=== PATIENT | female | born 1990 ===

== ENCOUNTER 2022-10-21 11:59 | Outpatient (RCR) | payer OTHER, SELFPAY | END 2022-10-21 23:59 | disposition home or self-care (01) | LOC: HO.PHPA 11:59 | PROVIDERS: Visit Provider Psychiatry & Neurology Psychiatry | DX: F31.4 Bipolar disorder, current episode depressed, severe, without psychotic features (principal); F41.1 Generalized anxiety disorder; F12.20 Cannabis dependence, uncomplicated | CPT/HCPCS: 90791 ==

== ENCOUNTER 2022-11-26 13:40 | Outpatient (REF) | payer OTHER, SELFPAY ==
[2022-11-26 13:57] LABS: MANUAL DIFF FLAG NO
[2022-11-26 14:25] LABS: Basophils Percent Auto 0.3 % (0-2); Eosinophils Absolute Auto 0.1 X10*3/uL (0.0-0.4); Eosinophils Percent Auto 1.1 % (0-4); Hematocrit 38.1 % (37.0-47.0); Hemoglobin 13.2 g/dl (12.0-16.0); Imm Gran Abs Auto 0.02 X10*3/uL (0.00-0.03); Imm Gran Pct Auto 0.3 % (0.0-0.4); Lymphocytes Absolute Auto 2.7 X10*3/uL (1.2-4.9); Lymphocytes Percent Auto 38.1 % (20-40); Mean Corpuscular HGB Conc 34.6 g/dl (31.0-35.0); Mean Corpuscular Volume 92.5 fL (80.0-98.0); Mean Platelet Volume 10.2 fL (9.4-12.3); Monocytes Absolute Auto 0.4 X10*3/uL (0.1-1.2); Monocytes Percent Auto 6.1 % (2-11); Neutrophils Absolute Auto 3.8 x10*3/uL (2.0-8.3); Neutrophils Percent Auto 54.1 % (45-73); Platelet Count 251 X10*3/uL (160-400); Red Blood Count 4.12 X10*6/uL (4.20-5.50); Red Cell Distribution Width 12.1 % (11.0-16.0)
[2022-11-26 15:16] LABS: Alanine Aminotransferase 22 U/L (0-31); Albumin Level 4.1 g/dL (3.5-5.0); Alkaline Phosphatase 61 U/L (39-117); Anion Gap 10 (12-20); Aspartate Amino Transferase 18 U/L (5-31); Bilirubin Total 0.9 mg/dL (0.0-1.0); Blood Urea Nitrogen 10 mg/dL (9-16); Calcium 9.7 mg/dL (8.4-10.2); Carbon Dioxide 28 mmol/L (22-29); Chloride 107 mmol/L (96-108); Estimated Glomerular Filt Rate > 60; Glucose Random 87 mg/dL (60-115); Potassium 4.4 mmol/L (3.3-5.1); Sodium 141 mmol/L (135-145); Total Protein 7.1 g/dL (6.5-8.0)
[2022-11-26 15:33] LABS: Free T4 (Free Thyroxine) 1.03 ng/dL (0.71-1.85); Thyroid Stimulating Hormone 1.18 uIU/mL (0.32-4.0)
[2022-11-26 15:42] LABS: Folate 10.7 ng/mL (> or = 4.0); Vitamin B12 286 pg/mL (200-900)
== END 2022-11-26 13:41 | disposition home or self-care (01) ==
LOC: HO.LAB 13:40
PROVIDERS: Visit Provider Psychiatry & Neurology Psychiatry
DX: F31.81 Bipolar II disorder (principal); Z79.899 Other long term (current) drug therapy
CPT/HCPCS: 36415; 80053; 82607; 82746; 84439; 84443; 85025

== ENCOUNTER → 2022-12-03 11:15 | Outpatient (BNV) | payer OTHER, SELFPAY | PROVIDERS: Visit Provider Psychiatry & Neurology Psychiatry | DX: F43.11 Post-traumatic stress disorder, acute (principal); F31.81 Bipolar II disorder | CPT/HCPCS: 99212; 99214; 99232 ==

== ENCOUNTER 2022-12-10 11:30 | Outpatient (RCR) | payer OTHER, SELFPAY ==
[2022-11-22 01:20] VITALS: BP 128/70; PULSE 80; RESP 16; TEMP 36.9
[2022-11-22 14:54] VITALS: BMI 35.1
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
--- NOTE | 2022-11-25 15:54 | HO.PHP ---
Clients case was reviewed and opened today in treatment team.
--- NOTE | 2022-12-01 15:02 | HO.PHP ---
[facility] staff reached out to Clarissa's OP therapist and psychiatrist, Herson Tirado, to inform her around how Clarissa has been doing within the program. [facility] staff left a VM noting that Clarissa has been utilizing the program to the best of her abilities and her tentative discharge date is December 08, 2022. [facility] staff encouraged Herson to contact her back with any further questions.
--- NOTE | 2022-12-02 09:55 | PC.NURSE ---
Yue Tellez APRN reviewed patient labs completed on 11/26/22.
--- NOTE | 2022-12-02 21:14 | HO.PHPPROGNO ---
Subjective Subjective Date of Service: 12/02/22 Reason For Visit: depression,anxiety,mood lability Healthcare Proxy: No Guardianship: No Medical Problems Affecting Mental Status: No Interim History: pt tolerating trileptal. no side effects. almost running out of trileptal and needs refill. still anxious. utilizing clonidine. no SI or HI Medication Compliance: Yes Side effects from medications: No Attending Groups: Yes Review of Systems Acute medical concerns: No Medical Review of Systems: unchanged Review of Systems Review of Systems no changes Mental Status Exam Mental Status Exam Patient Appearance: Well Grooomed Patient Orientation: Person, Place, Time and Situation Level of Consciousness: Awake and Appropriate Patient Behavior: Appropriate and Anxious Mood Description: Depressed, Anxious and Apprehensive Affect Description: Appropriate, Constricted, Depressed and Anxious Patient Cognition Impaired: No Ability to Follow Directions: Good Speech Pattern: Clear Memory Description: Intact Hallucinations: None Delusions: Not Present Thought Process: Intact and Goal Oriented Thought Content: positive for Intact Depressive Symptoms: Increased Anxiety and Diff. Making Decisions Judgement: Good Diagnostics Vital Signs (24Hr): BMI result Body Mass Index 35.1 Assessment & Plan Assessment & Plan (1) Post traumatic stress disorder (PTSD): Status: Acute Code(s): F43.10 - Post-traumatic stress disorder, unspecified (2) Bipolar II disorder: Status: Acute Code(s): F31.81 - Bipolar II disorder Plan Patient has history of depression anxiety mood instability consistent with her current mood disorder and PTSD. Question of bipolar 2 Questionable history of ADD D by history. Plan: patient utilizing prescription for clonidine to help with restlessness and anxiety 0.5-0.1 mg up to twice a day caution may cause dizziness lower blood pressure carefully reviewed with patient start Trileptal for for mood instability anxiety. refill for trileptal senyt to pharmacy Patient denies active thoughts of self-harm literature given regarding medication bipolar disorder PTSD clarify diagnosis over time. Patient would benefit from learning skills to manage her feeling states would eventually benefit from DBT type skills program as available consider lithium Lamictal as alternative Patient educated on: diagnosis, medication risk/benefits and therapeutic strategies Informed Consent: understands Reason for contiued partial hosp. stay Substantial Risk for: harm to self, inability to function and rapid decompensation Certification I certify that partial hospital treatment is medically necessary due to the symptoms and problems resulting from the patient's mental illness and the failure to treat the patient at the partial hospital level of care would likely result in the patient requiring inpatient psychiatric care which could not be prevented at a less intensive level of care. Total time managing care of this patient today __30__ minutes. Discharge Plan Discharge Attending provider: Adrian Narvaez Additional Instructions: Clarissa's OP and Psychiatric provider is Herson Tirado. Clarissa's next appointment with Herson is December 17, 2022 at noon. Clarissa also has an upcoming doctors appointment with Dr. Garcia at [facility] on December 14, 2022 at 8:45 AM. Clarissa was provided with an anger management group through [employer] that she can reach out to. A brochure was provided to her with the number to call. Medications: New buspirone 5 mg tablet 5 mg PO QID 14 Days Qty: 56 0RF clonidine HCl 0.1 mg tablet 0.1 mg PO TID Qty: 14 0RF Rx Instructions: take 1/4 tablet twice a day and 1/2 tab at bedtime oxcarbazepine [Trileptal] 150 mg tablet 150 mg PO TID 14 Days Qty: 42 0RF No Action gabapentin 300 mg capsule 300 mg PO TID baclofen 5 mg tablet 5 mg PO TID diclofenac sodium 75 mg tablet,delayed release (DR/EC) 75 mg PO BID PRN (Reason: Muscle Spasm) aripiprazole 2 mg tablet 4 mg PO BEDTIME trazodone 50 mg tablet 50 mg PO BEDTIME Stand Alone Forms: Patient Portal Discharge page Patient Education: Bipolar Disorder (DC) Telehealth Telehealth Location of provider rendering services: other Location of patient: other ([facility]) Patient Identification confirmed using: Name, : Yes Telehealth method: video Patient verbally consented to treatment: Yes Patient verbally consented to billing insurance company: Yes Patient informed of any privacy concerns related to visit: Yes Minutes spent on Phone/Video with Pt.: 15
== END 2022-12-10 23:59 | disposition home or self-care (01) ==
LOC: HO.PHPA 11:30
PROVIDERS: Visit Provider Psychiatry & Neurology Psychiatry
DX: F31.81 Bipolar II disorder (principal); F43.10 Post-traumatic stress disorder, unspecified; F41.1 Generalized anxiety disorder; F12.20 Cannabis dependence, uncomplicated
CPT/HCPCS: 90791; 90853

== ENCOUNTER → 2022-12-10 11:30 | Outpatient (BNV) | payer OTHER, SELFPAY | PROVIDERS: Visit Provider Clinical Nurse Specialist Psychiatric/Mental Health | DX: F43.10 Post-traumatic stress disorder, unspecified (principal); F31.81 Bipolar II disorder | CPT/HCPCS: 90832; 99213 ==

== ENCOUNTER → 2023-09-02 11:45 | Outpatient (BNV) | payer OTHER, SELFPAY | PROVIDERS: Visit Provider Psychiatry & Neurology Psychiatry | DX: F31.81 Bipolar II disorder (principal); F43.11 Post-traumatic stress disorder, acute; F42.8 Other obsessive-compulsive disorder; F12.90 Cannabis use, unspecified, uncomplicated; F17.200 Nicotine dependence, unspecified, uncomplicated | CPT/HCPCS: 90832; 90837 ==

== ENCOUNTER 2023-09-05 10:30 | Outpatient (RCR) | payer OTHER, SELFPAY ==
[2023-08-26 10:59] VITALS: BP 92/60; PULSE 80; TEMP 36.7
[2023-08-26 11:02] VITALS: BMI 36.7
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
--- NOTE | 2023-08-26 12:45 | HO.PHP ---
[facility] staff member followed up with Clarissa after group three to gather clarification around her comment around wanting to hurt others and having a plan. Clarissa disclosed that she has thoughts about wanting to engage in self-harm but no plan or intent to act on those thoughts. Clarissa also noted that she already spoke with the nurse in regards to this. [facility] staff assessed if she has plans on wanting to hurt anyone. Clarissa voiced that she does not. Clarissa mentioned she will be safe and won't be engaging in any concerning behaviors. [facility] staff member was receptive.
[2023-08-26 14:28] LABS: Amphetamine Screen Urine Not Detected (Not Detect); Barbiturates, Urine Not Detected (Not Detect); Benzodiazepines Screen Urine Not Detected (Not Detect); Cannabinoid Screen Urine POSITIVE (Not Detect); Cocaine Screen Urine Not Detected (Not Detect); Fentanyl, urine Not Detected (Not Detect); Opiate Screen Urine Not Detected (Not Detect); Phencyclidine Screen Urine Not Detected (Not Detect)
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
--- NOTE | 2023-08-29 16:20 | HO.PHP ---
[facility] team was informed by [facility] Admin, Nasrin, that Clarissa will not be in attendance to program today. Nasrin stated she is safe and will be here tomorrow. [facility] staff member was receptive.
[2023-08-30 11:35] VITALS: BP 104/60; PULSE 88
--- NOTE | 2023-08-30 13:09 | PC.NURSE ---
Clarissa asked to talk to me and take her blood pressure. I spoke to Clarissa who started crying reporting having relationship issues with her partner whom she lives with for the past 6 years. Stated she is thinking of breaking up with him however does not want to do that. She stated that she has history of cheating on him twice and she stated he found a letter that she wrote and stated he thinks she is cheating on him again. She stated she is not cheating on him however he does not believe her. He does not want to end the relationship. I encouraged her to talk about this in groups. She stated she would try. She agreed not to make any rash decisions. I asked her if she was having any SI or thoughts to self harm. She stated no SI however is having thoughts to self harm. She has not self harmed in a year and prior to this it has been years. I asked her what she could do when feeling strong emotions instead of harming herself and she talked about distraction techniques and grounding herself. She plans on going home after PHP and clean as this helps distract her thoughts.
--- NOTE | 2023-08-31 10:57 | HO.PHP ---
Clarissa called before community meeting this morning stating she would join group at 9:30. She did not show up for psychotherapy group. Staff called after and was able to reach her. She stated she was not going to make it in time for 9:30. Staff told her she would need to be discharged if she missed another day. She responded, that's fine. Staff then asked if she will be coming to the program tomorrow and she said she is.
--- NOTE | 2023-09-01 16:06 | HO.PHP ---
Client's case has been opened and reviewed in treatment team.
--- NOTE | 2023-09-02 22:53 | HO.PHPPROGNO ---
Subjective Subjective Date of Service: 09/02/23 Reason For Visit: PTSD,bipolar II Interim History: Patient seen for follow-up. Mood still depressed . Some hopelessness, denies thoughts of harming self or others. Wellbutrin was increased to 300 mg 3 or 4 weeks ago, has not been able to appreciate a difference. Feels she got worse and eventually had to come to [facility]. 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 Buspar is helpful, taking QID. Luvox also helpful for OCD. Looking for 14 mg nicotine patches, as has been smoking more lately, at 4-6 cigs daily. Has used nicotine patches in the past. Medication Compliance: Yes Side effects from medications: No Attending Groups: Yes Review of Systems Acute medical concerns: No Mental Status Exam Mental Status Exam Narrative: Alert, oriented, in no acute distress. Calm, cooperative, engaged. No psychomotor agitation or neurovegetative retardation. Eye contact maintained. Mood depressed, irritable, labile, affect constricted, no noted irritability or lability. Speech normal. Thought process linear, coherent. Thought content related to stressors, transient hopelessness, denies SI or HI. No paranoia or delusional content elicited. No evidence of psychosis. Insight and judgment fair. Diagnostics Vital Signs (24Hr): BMI result Body Mass Index 36.7 Assessment & Plan Assessment & Plan (1) Post traumatic stress disorder (PTSD): Status: Acute Code(s): F43.10 - Post-traumatic stress disorder, unspecified (2) Bipolar II disorder: Status: Acute Code(s): F31.81 - Bipolar II disorder (3) Other obsessive-compulsive disorder: Status: Acute Code(s): F42.8 - Other obsessive-compulsive disorder (4) Cannabis use disorder: Status: Acute Code(s): F12.90 - Cannabis use, unspecified, uncomplicated (5) Nicotine dependence: Status: Acute Code(s): F17.200 - Nicotine dependence, unspecified, uncomplicated Plan discontinue Abilify (AE: akithisia) start lurasidone 20 mg qd w supper discontinue Wellbutrin XL 300 mg start Wellbutrin SR 100 mg qAM hold clonidine (4 in AM, 4 noon) start guanfacine ER 1 mg qAM increase nighttime clonidine to 0.1 mg qHS (may consider switching to prazosin continue Luvox 25 mg BID continue oxcarbazepine 450 mg BID continue gabapentin 300 mg TID continue Buspar 7.5 QID baclofen PRN Routine lab work pending Continue to monitor Patient educated on: diagnosis, medication risk/benefits and substance abuse Informed Consent: understands Reason for contiued partial hosp. stay Substantial Risk for: inability to function, rapid decompensation and med/psych decompensation Certification I certify that partial hospital treatment is medically necessary due to the symptoms and problems resulting from the patient's mental illness and the failure to treat the patient at the partial hospital level of care would likely result in the patient requiring inpatient psychiatric care which could not be prevented at a less intensive level of care. Total time managing care of this patient today _30___ minutes. Discharge Plan Discharge Attending provider: Alina Brady Medications: New lurasidone 20 mg tablet 20 mg PO QPM Qty: 30 0RF Rx Instructions: must administer with food (at least 350 calories) guanfacine 1 mg tablet extended release 24 hr 1 mg PO .DAILY in AM Qty: 20 0RF nicotine 14 mg/24 hr patch 24 hour 1 patch transdermal DAILY Qty: 14 0RF Rx Instructions: apply one patch daily in AM, remove patch every night bupropion HCl 100 mg tablet sustained-release 12 hr 100 mg PO QAM Qty: 20 0RF Continued gabapentin 300 mg capsule 300 mg PO TID oxcarbazepine 150 mg tablet 150 mg PO BID clonidine HCl 0.1 mg tablet 0.05 mg PO 5XD Rx Instructions: TAKE 1/4 TABLET FOUR TIMES DAILY AND TAKE 1/2 TABLET AT BEDTIME DIRECTED oxcarbazepine 300 mg tablet 300 mg PO BID trazodone 100 mg tablet 150 mg PO BEDTIME Patient Comments: Patient stated she takes 150 mg at HS. Prescribed 200 mg at HS. buspirone 7.5 mg tablet 7.5 mg PO QID PRN (Reason: Anxiety) fluvoxamine 25 mg tablet 25 mg PO BID baclofen 10 mg tablet 5 - 10 mg PO TID Patient Comments: Patient stated she takes PRN. Held bupropion HCl 300 mg Tablet Extended Release 24 Hr 300 mg PO QAM Hold Instructions: Resume on 09/09/23. trial SR formulation at lower dose No Action aripiprazole 2 mg tablet 2 mg PO BEDTIME Patient Comments: Patient reports prescriber decreased dose from 3 mg to 2 mg at HS. Stand Alone Forms: Patient Portal Discharge page Print Language: Faroese
[2023-09-05 11:18] VITALS: BP 91/60; PULSE 85
--- NOTE | 2023-09-05 11:24 | PC.NURSE ---
Reviewed patient discharge medications with patient along with Dr Brady on speaker phone. Patient stated she is still taking Clonidine 0.05 mg tabs taking 1/4 tab four times a day and 1 tab at bedtime along with Guanfacine 1 mg in the am. She reports she took 1/4 tab of Clonidine and Guanfacine 1 mg this morning together. VS BP 91/[address] Brady's instructions patient to discontinue Clonidine 1/4 tab 4 times a day and will increase Guanfacine from 1 mg daily to 2 mg daily in the morning and take Clonidine 0.05 mg tab at bedtime only. Medication education provided including patient not to take Guanfacine and Clonidine together and to take as prescribed. Patient also to decrease Trazodone to take 50 or 100 mg tab at bedtime as needed for insomnia.
== END 2023-09-05 23:59 | disposition home or self-care (01) ==
LOC: HO.PHPA 10:30
PROVIDERS: Visit Provider Psychiatry & Neurology Psychiatry
DX: F43.10 Post-traumatic stress disorder, unspecified (principal); F31.81 Bipolar II disorder; F42.8 Other obsessive-compulsive disorder; F12.90 Cannabis use, unspecified, uncomplicated; F17.200 Nicotine dependence, unspecified, uncomplicated; Z79.899 Other long term (current) drug therapy
CPT/HCPCS: 80307; 90791; 90853

== ENCOUNTER → 2023-09-23 11:00 | Outpatient (BNV) | payer OTHER, SELFPAY | PROVIDERS: Visit Provider Psychiatry & Neurology Psychiatry | DX: F31.81 Bipolar II disorder (principal); F43.10 Post-traumatic stress disorder, unspecified; F42.8 Other obsessive-compulsive disorder; F12.90 Cannabis use, unspecified, uncomplicated; F17.210 Nicotine dependence, cigarettes, uncomplicated | CPT/HCPCS: 90837; 99213 ==

== ENCOUNTER 2023-10-06 10:00 | Outpatient (RCR) | payer OTHER, SELFPAY ==
[2023-09-23 10:38] VITALS: BP 90/54; PULSE 88; TEMP 36.7
[2023-09-23 10:42] VITALS: BMI 40.2
--- NOTE | 2023-09-23 11:34 | PC.ADMIT ---
Patient is a 33 year old female who was initially admitted to [facility] on 08/25/23 and discharged on 09/05/23 d/t attendance issues. At that time she was referred to [facility] by her psychiatrist/therapist d/t increased depression with passive SI (no plan or intent to kill self), anxiety with panic attacks, PTSD sxs and daily Marijuana use. Patient called the program to set up an appointment for a re-assessment as she is struggling with depression and anxiety, PTSD, and images of black holes. Patient currently presented with depressed mood and anxious affect. She denied SI or HI. She was given a copy of her safety plan if needed. medication reconciled with patient, medical records, and Dr Brady. Patient identifies supports as boyfriend whom she lives with and her mother.
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
--- NOTE | 2023-09-26 12:17 | PC.NURSE ---
Clarissa participated in group discussion about social supports and connecting with the community. Discussion and information provided on local resources for mental health in the area. Clarissa shared with the group about her and children who are her support system and she has cats that help her relax, she stated that she is congregational and uses [employer] as a support and for guidance.
--- NOTE | 2023-09-27 14:02 | HO.PHP ---
[facility] staff member reached out to Clarissa due to her not showing to program. Clarissa disclosed that she won't be in attendance to program today because her daughter is sick. [facility] staff member assessed SI, plan or intent. Clarissa disclosed no safety concerns around SI, plan or intent and will be in the program tomorrow. [facility] staff member was receptive.
--- NOTE | 2023-09-28 10:02 | HO.PHP ---
[facility] staff member contacted Clarissa due to her not showing up to program. PHP staff member left a VM at 9:15 AM and is awaiting a call back. [facility] staff member did state in the VM if she does not call back in 15 minutes, she will have to reach out to her emergency contact and then do a wellness check if the emergency contact does not respond.
--- NOTE | 2023-09-28 10:03 | HO.PHP ---
[facility] staff member reached out to Clarissa at 9:30 AM prior to initiating a call to the emergency contact. Clarissa answered the phone and was tearful. Clarissa informed the clinician that she is having a tough morning, in which her son missed his bus, leaving her to have to bring both children to school. Clarissa then expressed that she forgot her phone at home as well. Clarissa disclosed that she wanted to come to program and is upset she is missing it. [facility] staff member provided support and assessed for any safety concerns around SI, plan or intent. Clarissa disclosed no safety concerns and stated she will be here tomorrow. [facility] staff member was receptive.
--- NOTE | 2023-09-29 14:45 | HO.PHP ---
Client's case has been opened and reviewed in team.
--- NOTE | 2023-10-06 15:56 | P.PNPSP_ITS ---
Subjective Subjective Date of Service: 10/06/23 Reason For Visit: depression Interim History: Patient seen for follow-up, anticipating discharge at the end of program today.? Gabapentin has been helpful with anxiety. Also says she thinks it helps with mood stability. Less mood swings, irritability persists and will continue to titrate oxcarbazepine as planned. She does not feind it sedating. Doesnt always take trazodone bc it doesnt keep her asleep, and if she takes more to sleep feel s too groggy the next day. Willing to take prn quetiapine for sleep if gabapentin not enough. SHe has an appointment with her provider Lisa Tirado this week. Feels she needs to return to 21 mg patch as she contiues to smoke on 14 mg patch due to cravings and says she is motivated to quit. WIll plan to return to 21 mg for 2 weeks then she can drop back down to 14 mg. Removes patch at night, so t his is not interfering with sleep. Reports no acute issues or concerns. Medication compliant, medications well- tolerated. Denies any adverse effects.? Mood is stable.? Denies any hopelessness or SI. Denies thoughts of harming self or others at this time. Denies any aggressive ideation or HI. Denies any paranoia or AH or VH. Sleep, appetite, energy stable. Medication Compliance: Yes Side effects from medications: No Attending Groups: Yes Review of Systems Acute medical concerns: No Mental Status Exam Mental Status Exam Narrative: Alert, oriented, in no acute distress. Calm, cooperative. Mood stable, affect appropriate. Speech normal. Thought process linear, coherent, more goal- directed. Thought content related to stressors, future-oriented, denies any helplessness, hopelessness or SI.? No aggressive ideation or HI. No paranoia or delusional content elicited. No evidence of psychosis. Insight and judgment fair-good. Diagnostics Vital Signs (24Hr): BMI result Body Mass Index 40.2 Assessment & Plan Assessment & Plan (1) Bipolar II disorder: Status: Acute Code(s): F31.81 - Bipolar II disorder (2) Post traumatic stress disorder (PTSD): Status: Acute Code(s): F43.10 - Post-traumatic stress disorder, unspecified (3) Other obsessive-compulsive disorder: Status: Acute Code(s): F42.8 - Other obsessive-compulsive disorder (4) Cannabis use disorder: Status: Acute Code(s): F12.90 - Cannabis use, unspecified, uncomplicated (5) Nicotine dependence: Qualifiers: Nicotine product type: cigarettes Substance use status: uncomplicated Qualified Code(s): F17.210 - Nicotine dependence, cigarettes, uncomplicated Status: Acute Code(s): F17.200 - Nicotine dependence, unspecified, uncomplicated Plan [facility]charge from [facility] increase nicotine to 21 mg qd continue to titrate Trileptal to 900 mg BID quetiapine 25-50 mg qhs PRN sleep start metformin 250 mg BID to mitigate weight gain/concerns w PRN quetiapine off trazodone continue other regular medications did not get lab work done will defer further medication management to outpatient provider Refills sent to pharmacy Patient educated on: diagnosis, medication risk/benefits and substance abuse Informed Consent: understands Reason for contiued partial hosp. stay Substantial Risk for: stable for discharge Certification I certify that partial hospital treatment is medically necessary due to the symptoms and problems resulting from the patient's mental illness and the failure to treat the patient at the partial hospital level of care would likely result in the patient requiring inpatient psychiatric care which could not be prevented at a less intensive level of care. Total time managing care of this patient today _30___ minutes. Discharge Plan Discharge Attending provider: Alina Brady Medications: New gabapentin 400 mg capsule 400 mg PO TID Qty: 30 0RF quetiapine 25 mg tablet 25 - 50 mg PO BEDTIME PRN (Reason: sleep, agitation) Qty: 30 0RF nicotine 21 mg/24 hr patch 24 hour 1 patch transdermal Q24H Qty: 14 0RF Rx Instructions: apply every morning to arm, remove daily in evening metformin 500 mg tablet 250 mg PO BID Qty: 20 0RF Continued clonidine HCl 0.1 mg tablet 0.1 mg PO BEDTIME Patient Comments: Confirmed with Dr Brady. buspirone 7.5 mg tablet 7.5 mg PO QID PRN (Reason: Anxiety) fluvoxamine 25 mg tablet 25 mg PO BID baclofen 10 mg tablet 5 - 10 mg PO TID Patient Comments: Patient stated she takes PRN. oxcarbazepine 300 mg tablet 300 mg PO BID Qty: 30 0RF oxcarbazepine 600 mg tablet 600 mg PO BID Qty: 30 0RF Changed bupropion HCl 100 mg tablet sustained-release 12 hr 100 mg PO BID Qty: 30 0RF guanfacine 1 mg tablet extended release 24 hr 1 - 2 mg PO .DAILY in AM Qty: 30 0RF Discontinued gabapentin 300 mg capsule 300 mg PO TID oxcarbazepine 150 mg tablet 150 mg PO BID trazodone 50 mg Tablet 25 mg PO BEDTIME Patient Comments: Decreased from 150 mg to [address] Brady aware. No Action nicotine 14 mg/24 hr patch 24 hour 1 patch transdermal DAILY Qty: 14 0RF Rx Instructions: apply one patch daily in AM, remove patch every night Stand Alone Forms: Patient Portal Discharge page Patient Education: Bipolar Disorder (DC) Print Language: Croatian
== END 2023-10-06 23:59 | disposition home or self-care (01) ==
LOC: HO.PHPA 10:00
PROVIDERS: Visit Provider Psychiatry & Neurology Psychiatry
DX: F31.81 Bipolar II disorder (principal); F43.10 Post-traumatic stress disorder, unspecified; F42.8 Other obsessive-compulsive disorder; F12.90 Cannabis use, unspecified, uncomplicated; F17.210 Nicotine dependence, cigarettes, uncomplicated; Z79.899 Other long term (current) drug therapy
CPT/HCPCS: 90791; 90853

== ENCOUNTER → 2024-04-12 11:00 | Outpatient (BNV) | payer OTHER, SELFPAY | PROVIDERS: Visit Provider Social Worker | DX: F31.81 Bipolar II disorder (principal); F43.10 Post-traumatic stress disorder, unspecified; F42.8 Other obsessive-compulsive disorder; F12.90 Cannabis use, unspecified, uncomplicated; F17.210 Nicotine dependence, cigarettes, uncomplicated | CPT/HCPCS: 90834; 99213; 99214; 99499 ==

== ENCOUNTER 2024-05-01 09:00 | Outpatient (RCR) | payer OTHER, SELFPAY ==
[2024-04-04 13:22] VITALS: BP 90/58; PULSE 100; TEMP 36.4
[2024-04-05 09:42] VITALS: BP 90/50; PULSE 96
[2024-04-05 09:43] VITALS: BMI 41.7
--- NOTE | 2024-04-05 10:29 | PC.ADMIT ---
04/04/24 Patient is a 33 year old partnered female who was referred to [facility] by her outpatient prescriber. Patient holds a dx of Bipolar II disorder and PTSD. Patient is 6 months . Patient reports a dx of Placenta Previa and a history of having 2 sections with her two other children. Patient feeling stressed and anxious about the baby. According to records from her outpatient provider Lisa Tirado patient has chosen not to take certain medications d/t her and therefore having a relapse currently of depressive symptoms, cutting over the past weekend and SI without specific intent or a plan and more of relief seeking with being a protective factor at this time. Patient unable to complete nursing assessment as patient stated she has to leave at 1:30 for a appointment at [facility]. Patient is alert and oriented x4. Calm and cooperative. Presented with anxious mood and affect. Reports feeling excited and anxious about the . Stated she is having a baby boy. Reports she was stressed last week and self harmed (patient has a history of self harm by cutting). Denied SI currently or thoughts to harm herself. She reports chronic HI towards her mothers' boyfriend. Denied any plans or intention of harming him as she stated she does not want to go to shelter and is having a baby. BP 90/58 P 100. Patient encouraged to increase fluid intake and I gave her water to drink. 04/05/24 Patient s alert and oriented x4. Calm and cooperative. Denied SI. She was given a copy of her safety plan if needed. She stated stresses include her children, lack of support, her home,a nd her relationship with her baby's father. Reports she is here to work on anxiety, depression and mood stability, along with PTSD. Medications reconciled with patient, patient's pharmacy, and paperwork form Lisa Tirado. Patient reports she is taking medications as prescribed. BP 90/50 P 96. Patient was encouraged to increase fluid intake. She reported the medications she is currently taking including Clonidine, Guanfacine, and Prazosin all of which have current prescriptions. Dr Brady is aware.
--- NOTE | 2024-04-05 15:39 | HO.PHP ---
Pt's case has been opened and reviewed in treatment team.
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
--- NOTE | 2024-04-12 15:31 | P.PNPSP_ITS ---
Subjective Subjective Date of Service: 04/12/24 Reason For Visit: depression Interim History: Pt reports program is going well for her. She denies SI/HI. No psychosis or delusions. She reports no side effects with medications. She reports she has to leave soon as she received message from her son's school as he is having some behavioral issues. Mental Status Exam Mental Status Exam Narrative: Appearance: wearing casual clothing, good hygiene, in NAD behavior: cooperative Psychomotor: no agitation or retardation noted Speech: clear, normal rate/rhythm/volume, spontaneous TP; linear TC: future oriented Mood: good Affect: congruent, SI: denies HI: denies VH/AH: none Delusions: none Insight/judgment: fair x 2. memory/cog: alert, oriented x 3. grossly intact to conversational testing. Diagnostics Vital Signs (24Hr): BMI result Body Mass Index 41.7 Assessment & Plan Assessment & Plan (1) Bipolar II disorder: Status: Acute Code(s): F31.81 - Bipolar II disorder (2) Post traumatic stress disorder (PTSD): Status: Acute Code(s): F43.10 - Post-traumatic stress disorder, unspecified (3) Other obsessive-compulsive disorder: Status: Acute Code(s): F42.8 - Other obsessive-compulsive disorder (4) Cannabis use disorder: Status: Acute Code(s): F12.90 - Cannabis use, unspecified, uncomplicated (5) Nicotine dependence: Qualifiers: Nicotine product type: cigarettes Substance use status: uncomplicated Qualified Code(s): F17.210 - Nicotine dependence, cigarettes, uncomplicated Status: Acute Code(s): F17.200 - Nicotine dependence, unspecified, uncomplicated Plan continue current medications. Patient educated on: diagnosis, medication risk/benefits and substance abuse Informed Consent: understands Reason for contiued partial hosp. stay Substantial Risk for: stable for discharge Certification I certify that partial hospital treatment is medically necessary due to the symptoms and problems resulting from the patient's mental illness and the failure to treat the patient at the partial hospital level of care would likely result in the patient requiring inpatient psychiatric care which could not be prevented at a less intensive level of care. Total time managing care of this patient today ____ minutes. Discharge Plan Discharge Attending provider: Alina Brady Medications: New diphenhydramine HCl 25 mg tablet 50 - 75 mg PO BEDTIME PRN (Reason: sleep) Qty: 30 0RF perphenazine 2 mg tablet 2 mg PO BID PRN (Reason: as directed) Qty: 20 0RF Continued buspirone 7.5 mg tablet 7.5 mg PO TID PRN (Reason: Anxiety) Rx Instructions: Last filled 04/02/24 fluvoxamine 25 mg tablet 25 mg PO BID Rx Instructions: Last filled 03/22/24 gabapentin 400 mg capsule 400 mg PO TID Qty: 30 0RF Rx Instructions: Last filled 03/04/24 prazosin 1 mg Capsule 1 mg PO BEDTIME Rx Instructions: Last filled 02/17/24 90 day supply. famotidine 20 mg Tablet 20 mg PO DAILY Rx Instructions: Last filled 03/23/24 iodogouz-fae-Nv-FA 1 mg Tablet 1 tab PO DAILY guanfacine 2 mg Tablet Extended Release 24 Hr 2 mg PO DAILY Rx Instructions: Last filled 04/02/24 aspirin 81 mg Capsule 162 mg PO DAILY Rx Instructions: 2 tabs daily starting 12 weeks gestation. Last filled 03/22/24 No Action clonidine HCl 0.1 mg tablet 0.1 mg PO BEDTIME Patient Comments: Last Filled 02/03/24 90 day supply. oxcarbazepine 300 mg tablet 300 mg PO BID Qty: 30 0RF Rx Instructions: Last filled 03/23/24 trazodone 150 mg Tablet 150 mg PO BEDTIME Rx Instructions: last filled 03/09/24 90 day supply Print Language: Taiwanese
--- NOTE | 2024-04-17 14:51 | PC.NURSE ---
Criselda/o having a productive cough that comes and goes for the last 3 days. Reports coughing up yellowish/green sputum. Stated she experiences some wheezing and SOB. No SOB seen. Patient does not appear to be struggling with breathing. Patient reports she has been coughing so much her ribs hurt. Advised to use a pillow on her chest to help with the pain when coughing. Temp 98.7. She called her PCP's office and reviewed the aforementioned information. She has a f/u appointment with her PCP at 3pm today. She also c/o nausea earlier and this was set off by certain smells in the air. Patient reports that she has not eaten today and asked for her lunch. Exposed patient to fresh air which she stated was helpful.
--- NOTE | 2024-04-19 22:10 | HO.PHPPROGNO ---
Subjective Subjective Date of Service: 04/19/24 Reason For Visit: depression Interim History: Patient reports she was doing okay, but last 2 days feeling increasingly depressed since running out of perphenazine. She had been taking 2 mg BID but feels TID was better. PTSD symptoms have exacerbated in the past day or 2. She tried taking Benadryl 25-50 mg for sleep in place of clonidine but did not help so she went back to taking clonidine. She also continues on prazosin 1 mg and trazodone 150 mg for sleep. She has found guanfacine ER 2 mg helpful in the AM and has been taking another 2 mg in afternoon since she ran out of perphenazine which has been helpful but not as helpful as perphenazine. I share concerns about her being on 3 antihypertensive meds lowering her BP. We discuss trying to increase the Benadryl and see if she can lower the clonidine by 0.05 mg which she has not tried. We will try lowering the guanfacine ER to 1 mg and she may continue at 1 mg in AM and 1 mg in afternoon. We will aim to discontinue clonidine, and if possible substitute out the prazosin at night for guanfacine. (we aim to remain on guanf 3 mg/d split. With both clonidine, prazosin discontinued). She has not restarted buspirone as she is out of this med. Refill will be sent. She feels this has been helpful for anxiety and may enable us to lower the dose of gabapentin and reduce risk associated with remaining on antiepileptic meds. At this point in gestation we seek to strike a balance between stabilizing patient and mitigate risks for mom and baby, paying particular attention in terms of potential complications/withdrawal/side effects for the . Irritablity had improved on perphenazine from a 10/10 on admission I was always irritated and had improved down to a 5 or 6 /10 in severity. Irritability has been coming back since yesterday and she reports has been much more noticable today. She continues on oxcarbazepine 300 mg BID which she was admitted on. Currently she is worried about school after receiving an email today notifying her of academic, at risk of failing. Letter given to her in support of receiving accommdations . Medication Compliance: No (ran out of perphenazine 04/17, has also been off of buspirone) Side effects from medications: Yes Attending Groups: No Review of Systems Acute medical concerns: Yes Mental Status Exam Mental Status Exam Narrative: Alert, oriented, in no acute distress. Calm, cooperative, engaged. No psychomotor agitation or neurovegetative retardation. Eye contact maintained. Mood depressed, affect constricted, irritable edge without notable lability. Speech normal. Thought process linear, coherent. Thought content related to stressors, transient helplessness, no hopelessness noted, denies SI, intention, urge or plan. Denies any aggressive ideation or HI. No paranoia or delusional content elicited. No evidence of psychosis. Insight and judgment - fair but adequate Diagnostics Vital Signs (24Hr): BMI result Body Mass Index 41.7 Assessment & Plan Assessment & Plan (1) Bipolar II disorder: Status: Acute Code(s): F31.81 - Bipolar II disorder (2) Post traumatic stress disorder (PTSD): Status: Acute Code(s): F43.10 - Post-traumatic stress disorder, unspecified (3) Other obsessive-compulsive disorder: Status: Acute Code(s): F42.8 - Other obsessive-compulsive disorder (4) Cannabis use disorder: Status: Acute Code(s): F12.90 - Cannabis use, unspecified, uncomplicated (5) Nicotine dependence: Qualifiers: Nicotine product type: cigarettes Substance use status: uncomplicated Qualified Code(s): F17.210 - Nicotine dependence, cigarettes, uncomplicated Status: Acute Code(s): F17.200 - Nicotine dependence, unspecified, uncomplicated Plan increase perphenazine 2 mg from BID to TID dosing (cont to titrate as tolerated, and cross taper off oxcarbazepine) decrease oxcarbazapine from 600 mg/d (300BID) and gradually taper to 300 mg/d (150 mg BID) (lowering by 150 mg q 3-4 days as tolerated) lower guanfacine ER from 4 mg/d to 3 mg/d (ie. transition from 2 mg BID (AM, afternoon) to 1 mg TID (AM, afternoon, HS) once clonidine and possibly prazosin discontinued at night) discontinue clonidine 0.1 mg qhs (will try to utilize guanfacine and other sleep meds to manage) increase diphenhydramine to 75 mg qhs restart buspirone 7.5 mg TID (switch from prn dosing to routine dosing) continue fluvoxamine 25 mg BID (OCD) continue gabapentin 400 mg TID - for sleep, anxiety, agitation (may be able to lower dose if buspirone helpful for anxiety) continue prazosin 1 mg qhs - has been very effective for nightmares at 1 mg, so will likely continue (since benefits outweigh risk) continue trazodone 150 mg qhs - for sleep (will consider alternatives or seek lowering dose) continue regular medications - famotidine 20 mg qd ASA 162 mg (ppx pre-eclampsia/eclampsia), MV consider vitamin B12 supplementation if level remains low (was <300 in 10/2022), not treated category C - clonidine*, Trileptal*, trazodone*, Luvox*, prazosin, (*considering alternatives), Trilafon (listed as category N and sometimes C) category B - Intuniv, Buspar, Benadryl, famotidine Alternatives: melatonin, doxylamine, diphenhydramine both category B and considered safe in for sleep No antidepressants are category B though some SSRIs considered safe: (fluoxetine, citalopram, escitalopram, sertraline, and to some degree bupropion). Unlikely to use SNRIs (risk of eclampsia) Patient educated on: diagnosis, medication risk/benefits and medical condition Informed Consent: understands Reason for contiued partial hosp. stay Substantial Risk for: inability to function, rapid decompensation and med/psych decompensation Certification I certify that partial hospital treatment is medically necessary due to the symptoms and problems resulting from the patient's mental illness and the failure to treat the patient at the partial hospital level of care would likely result in the patient requiring inpatient psychiatric care which could not be prevented at a less intensive level of care. Total time managing care of this patient today _04__ minutes. Discharge Plan Discharge Attending provider: Alina Brady Medications: New diphenhydramine HCl 25 mg tablet 50 - 75 mg PO BEDTIME PRN (Reason: sleep) Qty: 30 0RF perphenazine 2 mg tablet 2 mg PO BID PRN (Reason: as directed) Qty: 20 0RF guanfacine 1 mg tablet extended release 24 hr 1 mg PO DAILY Qty: 30 0RF perphenazine 2 mg tablet 2 mg PO TID Qty: 30 0RF mecobalamin (vitamin B12) 1,000 mcg tablet,chewable 1,000 mcg PO DAILY Qty: 30 0RF Continued fluvoxamine 25 mg tablet 25 mg PO BID Rx Instructions: Last filled 03/22/24 gabapentin 400 mg capsule 400 mg PO TID Qty: 30 0RF Rx Instructions: Last filled 03/04/24 prazosin 1 mg Capsule 1 mg PO BEDTIME Rx Instructions: Last filled 02/17/24 90 day supply. famotidine 20 mg Tablet 20 mg PO DAILY Rx Instructions: Last filled 03/23/24 ukrdudkj-szg-Xw-FA 1 mg Tablet 1 tab PO DAILY guanfacine 2 mg Tablet Extended Release 24 Hr 2 mg PO DAILY Rx Instructions: Last filled 04/02/24 aspirin 81 mg Capsule 162 mg PO DAILY Rx Instructions: 2 tabs daily starting 12 weeks gestation. Last filled 03/22/24 buspirone 7.5 mg tablet 7.5 mg PO TID PRN (Reason: Anxiety) Qty: 30 0RF Rx Instructions: Last filled 04/02/24 No Action clonidine HCl 0.1 mg tablet 0.1 mg PO BEDTIME Patient Comments: Last Filled 02/03/24 90 day supply. oxcarbazepine 300 mg tablet 300 mg PO BID Qty: 30 0RF Rx Instructions: Last filled 03/23/24 trazodone 150 mg Tablet 150 mg PO BEDTIME Rx Instructions: last filled 03/09/24 90 day supply Print Language: Grenadian
--- NOTE | 2024-04-23 23:47 | HO.PHPPROGNO ---
Subjective Subjective Date of Service: 04/23/24 Reason For Visit: depression Interim History: Patient seen upon request. Pharmacy is not filling perphenazine and buspirone. She is not sure if it is an insurance issue. I suspect this is because she is on a lot of medication and will plan to call pharmacy this afternoon to clarify plan for cross tapering from some of the medication. Perphenazine was thus far helpful in controling mood symptoms, irritability, lability and said she felt better on this. She reports mood as depressed and frustrated . She denies any SI just some self harming thoughts . She denies any thoughts or urges to act on these, but is frustarted that these thoughts have been more prevalent and is upset about insurance not covering it. She reports her mood being lower and more irritable since last week being off perphenazine. She lowered the oxcarbazepine to 150 mg BID, I suggest she may want to hold up back at 300 mg BID until the perphenazine is sorted out. She reports that she has had some success with taking 75 mg of diphenhydramine and 1/2 tablet of trazodone and has been able to sleep now. No longer taking clonidine and trazodone at 75 mg (instead of 150 mg). She continues on prazosin and is open to seeing if we could substitute guanfacine in the evening for the prazosin, although I suggest holding off that change until the perphenazine is reinstated (to help with mood stabilzation and PTSD sx) or another suitable alternative is started (?quetiapine or lurasidone). She continues on gabapentin 400 mg TID-QID. Once perphenazine restarted we may be able to continue gabapentin at TID and possibly BID is tolerable. Furthermore Buspar which has been helpful with anxiety may allow for further decrease in gabapentin. Medication Compliance: No (pending pharmacy/insurance authorization) Side effects from medications: No Attending Groups: Yes Review of Systems Acute medical concerns: No Medical Review of Systems: unchanged Mental Status Exam Mental Status Exam Narrative: Alert, oriented, in no acute distress. Irritable, cooperative, engaged. No psychomotor agitation or neurovegetative retardation. Eye contact maintained. Mood depressed, affect constricted, irritable edge without notable lability. Speech normal. Thought process linear, coherent. Thought content related to stressors, transient helplessness, no hopelessness noted, denies SI, intention, urge or plan. Denies any aggressive ideation or HI. No paranoia or delusional content elicited. No evidence of psychosis. Insight and judgment - fair but adequate Diagnostics Vital Signs (24Hr): BMI result Body Mass Index 41.7 Assessment & Plan Assessment & Plan (1) Bipolar II disorder: Status: Acute Code(s): F31.81 - Bipolar II disorder (2) Post traumatic stress disorder (PTSD): Status: Acute Code(s): F43.10 - Post-traumatic stress disorder, unspecified (3) Other obsessive-compulsive disorder: Status: Acute Code(s): F42.8 - Other obsessive-compulsive disorder (4) Cannabis use disorder: Status: Acute Code(s): F12.90 - Cannabis use, unspecified, uncomplicated (5) Nicotine dependence: Qualifiers: Nicotine product type: cigarettes Substance use status: uncomplicated Qualified Code(s): F17.210 - Nicotine dependence, cigarettes, uncomplicated Status: Acute Code(s): F17.200 - Nicotine dependence, unspecified, uncomplicated Plan increase perphenazine 2 mg from BID to TID dosing (cont to titrate as tolerated, and cross taper off oxcarbazepine) decrease oxcarbazapine from 600 mg/d (300BID) to 450 mg/d (150/300) (will cont to taper by 150 mg q 3-4 days as tolerated) low guanfacine ER from 4 mg/d to 3 mg/d (ie. transition from 2 mg BID (AM, afternoon) to 1 mg TID (AM, afternoon, HS) once clonidine and possibly prazosin discontinued at night) discontinue clonidine 0.1 mg qhs (will try to utilize guanfacine and other sleep meds to manage) increase diphenhydramine to 75 mg qhs restart buspirone 7.5 mg TID (switch from prn dosing to routine dosing) continue fluvoxamine 25 mg BID (OCD) continue gabapentin 400 mg TID-QID - for sleep, anxiety, agitation (may be able to lower dose if buspirone helpful for anxiety) continue prazosin 1 mg qhs - has been very effective for nightmares at 1 mg, so will likely continue (since benefits outweigh risk) continue trazodone 150 mg qhs - for sleep (will consider alternatives or seek lowering dose) continue regular medications - famotidine 20 mg qd ASA 162 mg (ppx pre-eclampsia/eclampsia), MV consider vitamin B12 supplementation if level remains low (was <300 in 10/2022), not treated category C - clonidine*, Trileptal*, trazodone*, Luvox*, prazosin, (*considering alternatives) category B - Intuniv, Buspar, Benadryl, famotidine category C vs N/not assigned - Trilafon (more studies available on quetiapine and lamotrigine in however not enough time to get lamotrigine to a therapeutic dose at this point. Seroquel is a consideration, other considerations include lurasidone, which though technically is category B, but there are limited studies available, seeing as this is a relatively newer medication Alternatives: melatonin, doxylamine, diphenhydramine both category B and considered safe in for sleep No antidepressants are category B though some SSRIs considered safe: (fluoxetine, sertraline, have been extnesively studied, and to some degree bupropion). Unlikely to use SNRIs (risk of eclampsia). Continue to monitor VS Was unable to reach pharmacy will try again this evening continue to monitor Patient educated on: diagnosis, medication risk/benefits and medical condition Informed Consent: understands Reason for contiued partial hosp. stay Substantial Risk for: inability to function and med/psych decompensation Certification I certify that partial hospital treatment is medically necessary due to the symptoms and problems resulting from the patient's mental illness and the failure to treat the patient at the partial hospital level of care would likely result in the patient requiring inpatient psychiatric care which could not be prevented at a less intensive level of care. Total time managing care of this patient today __30__ minutes. Discharge Plan Discharge Attending provider: Alina Brady Medications: New diphenhydramine HCl 25 mg tablet 50 - 75 mg PO BEDTIME PRN (Reason: sleep) Qty: 30 0RF perphenazine 2 mg tablet 2 mg PO BID PRN (Reason: as directed) Qty: 20 0RF guanfacine 1 mg tablet extended release 24 hr 1 mg PO DAILY Qty: 30 0RF perphenazine 2 mg tablet 2 mg PO TID Qty: 30 0RF mecobalamin (vitamin B12) 1,000 mcg tablet,chewable 1,000 mcg PO DAILY Qty: 30 0RF Continued gabapentin 400 mg capsule 400 mg PO TID Qty: 30 0RF Rx Instructions: Last filled 03/04/24 prazosin 1 mg Capsule 1 mg PO BEDTIME Rx Instructions: Last filled 02/17/24 90 day supply. famotidine 20 mg Tablet 20 mg PO DAILY Rx Instructions: Last filled 03/23/24 [id number] 1 mg Tablet 1 tab PO DAILY guanfacine 2 mg Tablet Extended Release 24 Hr 2 mg PO DAILY Rx Instructions: Last filled 04/02/24 aspirin 81 mg Capsule 162 mg PO DAILY Rx Instructions: 2 tabs daily starting 12 weeks gestation. Last filled 03/22/24 buspirone 7.5 mg tablet 7.5 mg PO TID PRN (Reason: Anxiety) Qty: 30 0RF Rx Instructions: Last filled 04/02/24 fluvoxamine 25 mg tablet 25 mg PO BID Qty: 30 0RF Rx Instructions: Last filled 03/22/24 No Action clonidine HCl 0.1 mg tablet 0.1 mg PO BEDTIME Patient Comments: Last Filled 02/03/24 90 day supply. oxcarbazepine 300 mg tablet 300 mg PO BID Qty: 30 0RF Rx Instructions: Last filled 03/23/24 trazodone 150 mg Tablet 150 mg PO BEDTIME Rx Instructions: last filled 03/09/24 90 day supply Print Language: Macanese
[2024-04-24 10:47] VITALS: BP 90/52; PULSE 88
--- NOTE | 2024-04-25 10:38 | PC.ADMIT ---
Patient crying in the [facility] kitchen area this morning. She stated her mother is not there for her. She texted her mother and told her she wants nothing to do with her and her kids want nothing to do with her. She stated she did not get a response from her mother. She stated she feels no one loves her. Stated she had to leave the house yesterday and was in her car for a few hours as patient stated, my partner lost his shit yesterday she stated her son cries all the time and was crying about having to take medicine. She stated he cries about everything and feels frustrated regarding this. Her son is 8 years old. She reports she has not been able to eat or drink anything in 2 days. Patient did drink gingerale that I offered her. She stated she wrote a suicide note and put it on the bed this morning before she left. I asked her if she had a plan to kill herself and she stated, I can't I am 7 months . Patient took Perphenazine medication as suggested by Dr. Brady. Reviewed aforementioned information with Dr. Brady. Dr. Brady met with patient afterwards to assess.
--- NOTE | 2024-04-25 11:06 | HO.PHPPROGNO ---
Subjective Subjective Date of Service: 04/25/24 Reason For Visit: depression Interim History: Clarissa presents as tearful and depressed today. She says she tried talking to her mom looking for support and validation but received neither. She has long standing abandonment issues, mom left her in DCF custody when she was younger she always puts her boyfriend first . She is currently in her 3rd trimester, life is chaotic at home with 3 children, she is tired, stressed and was looking for a supportive shoulder to lean on. She doesn't ssay anything nice, and just is never there for me when I need her . Brings up a lot of painful memories and sadness. She has been having suicidal thoughts today, but says they are mostly passive. She admits some transient thoughts of harming herself but says she is not at risk I can't hurt myself I got the baby . She denies any urge, intention or plan to harm herself. She endorses some SIB namely skin picking aggressively around her fingers, which were currently bleeding and was trying to clean up her fingers to apply some bandaids. She has not been sleeping well at home, she notes her 2 boys are especially difficult to deal with right now and says I can't deal with them right now . She notes feeling very frustrated and overwhelmed and wishes her mother could have helped her out. She does not feel she needs to go in the hospital but she does feel she needs extra support and when discussed options she was eager to go to respite for the long holiday weekend. Her partner is home with the children and feels they are safe. She says she is trying to take care of herself but feeling emotionally unstable and overwhelmed. She was able to picker feeder the perphenazine last night, but the pharmacy gave her both doses (2 mg and 4 mg) and was not sure which one to start back on. She says she did feel her irritability and stability were better when she was on the medication last week. We also return to discussing starting Latuda to help with depression and would allow us to taper off the oxcarbazepine. In alan meantime she continues with perphenazine 2 mg TID prn for anxiety/irritability/agitation. She is now off the clonidine and once she started back on perphenazine will see about holding HS prazosin (so she will have reduced the # of antihypertensive from 3 - clonidine, prazosin, Intuniv) to just BID Intuniv which is the only category B of the 3. Medication Compliance: Yes Side effects from medications: No Attending Groups: Yes Review of Systems Acute medical concerns: No Mental Status Exam Mental Status Exam Narrative: Alert, oriented, in no acute distress. Calm, cooperative, engaged. No psychomotor agitation or neurovegetative retardation. Eye contact maintained. Mood depressed, affect constricted, irritable edge without notable lability. Speech normal. Thought process linear, coherent. Thought content related to stressors, transient helplessness, no hopelessness noted, denies SI, intention, urge or plan. Denies any aggressive ideation or HI. No paranoia or delusional content elicited. No evidence of psychosis. Insight and judgment - fair but adequate Diagnostics Vital Signs (24Hr): BMI result Body Mass Index 41.7 Assessment & Plan Assessment & Plan (1) Bipolar II disorder: Status: Acute Code(s): F31.81 - Bipolar II disorder (2) Post traumatic stress disorder (PTSD): Status: Acute Code(s): F43.10 - Post-traumatic stress disorder, unspecified (3) Other obsessive-compulsive disorder: Status: Acute Code(s): F42.8 - Other obsessive-compulsive disorder (4) Cannabis use disorder: Status: Acute Code(s): F12.90 - Cannabis use, unspecified, uncomplicated (5) Nicotine dependence: Qualifiers: Nicotine product type: cigarettes Substance use status: uncomplicated Qualified Code(s): F17.210 - Nicotine dependence, cigarettes, uncomplicated Status: Acute Code(s): F17.200 - Nicotine dependence, unspecified, uncomplicated Plan will refer to respite for long weekend/holiday for safety and support continue perphenazine 2 mg TID prn start lurasidone 20 mg qd w meal and will plan to increase to 40 mg qd w meal as tolerated cont to taper off oxcarbazepine (down to 150 mg BID currently) continue guanfacine ER 1mg BID (AM and afternoon) off clonidine 0.1 mg continue diphenhydramine 75 mg qhs restart buspirone 7.5 mg TID (switch from prn dosing to routine dosing) continue fluvoxamine 25 mg BID (OCD) continue gabapentin 400 mg TID-QID - for sleep, anxiety, agitation (may be able to lower dose if buspirone helpful for anxiety) hold prazosin 1 mg qhs - will cont if nightmares return without prazosin (since benefits outweigh risk) continue trazodone at half dose (75 mg) qhs - for sleep (will consider alternatives or seek lowering dose) continue regular medications - famotidine 20 mg qd ASA 162 mg (ppx pre-eclampsia/eclampsia), MV consider vitamin B12 supplementation if level remains low (was <300 in 10/2022), not treated category C - (clonidine-stopped), (Trileptal-tapering), (trazodone- reduced dose), Luvox*, (prazosin-hold), (*considering alternatives) category B - Intuniv, Buspar, Benadryl, famotidine, lurasidone category C vs N/not assigned - Trilafon (more studies available on quetiapine and lamotrigine in however not enough time to get lamotrigine to a therapeutic dose at this point. Seroquel is a consideration, other considerations include lurasidone, which though technically is category B, but there are limited studies available, seeing as this is a relatively newer medication Alternatives: melatonin, doxylamine, diphenhydramine both category B and considered safe in for sleep No antidepressants are category B though some SSRIs considered safe: (fluoxetine, sertraline, have been extnesively studied, and to some degree bupropion). Unlikely to use SNRIs (risk of eclampsia). Continue to monitor VS continue to monitor Patient educated on: diagnosis and medication risk/benefits Informed Consent: understands Reason for contiued partial hosp. stay Substantial Risk for: harm to self, rapid decompensation and med/psych decompensation Certification I certify that partial hospital treatment is medically necessary due to the symptoms and problems resulting from the patient's mental illness and the failure to treat the patient at the partial hospital level of care would likely result in the patient requiring inpatient psychiatric care which could not be prevented at a less intensive level of care. Total time managing care of this patient today __45__ minutes. Discharge Plan Discharge Attending provider: Alina Brady Medications: New diphenhydramine HCl 25 mg tablet 50 - 75 mg PO BEDTIME PRN (Reason: sleep) Qty: 30 0RF mecobalamin (vitamin B12) 1,000 mcg tablet,chewable 1,000 mcg PO DAILY Qty: 30 0RF lurasidone 40 mg tablet 40 mg PO QPM Qty: 10 0RF Rx Instructions: start 1/2 tablet po daily with supper for 2-4 days as directed, then increase to one tablet; must administer with food (at least 350 calories) oxcarbazepine 150 mg tablet 150 mg PO BID Qty: 20 0RF Rx Instructions: continue to taper off as directed Continued gabapentin 400 mg capsule 400 mg PO TID Qty: 30 0RF Rx Instructions: Last filled 03/04/24 prazosin 1 mg Capsule 1 mg PO BEDTIME Rx Instructions: Last filled 02/17/24 90 day supply. famotidine 20 mg Tablet 20 mg PO DAILY Rx Instructions: Last filled 03/23/24 [id number] 1 mg Tablet 1 tab PO DAILY aspirin 81 mg Capsule 162 mg PO DAILY Rx Instructions: 2 tabs daily starting 12 weeks gestation. Last filled 03/22/24 buspirone 7.5 mg tablet 7.5 mg PO TID PRN (Reason: Anxiety) Qty: 30 0RF Rx Instructions: Last filled 04/02/24 fluvoxamine 25 mg tablet 25 mg PO BID Qty: 30 0RF Rx Instructions: Last filled 03/22/24 Changed trazodone 150 mg Tablet 75 mg PO BEDTIME PRN (Reason: sleep) Qty: 10 0RF perphenazine 2 mg tablet 2 mg PO TID PRN (Reason: as directed) Qty: 30 0RF guanfacine 2 mg Tablet Extended Release 24 Hr 1 mg PO BID Qty: 10 0RF Rx Instructions: =only use if running out of 1 mg tabs= guanfacine 1 mg tablet extended release 24 hr 1 mg PO BID Qty: 30 0RF Rx Instructions: in AM and afternoon Discontinued clonidine HCl 0.1 mg tablet 0.1 mg PO BEDTIME Patient Comments: Last Filled 02/03/24 90 day supply. oxcarbazepine 300 mg tablet 300 mg PO BID Qty: 30 0RF Rx Instructions: Last filled 03/23/24 Stand Alone Forms: Patient Portal Discharge page Print Language: Tamazight
--- NOTE | 2024-04-25 11:21 | PC.NURSE ---
Renetta contacted [facility]. In the process of sending them a referral regarding
--- NOTE | 2024-04-30 17:01 | P.PNPSP_ITS ---
Subjective Subjective Date of Service: 04/30/24 Reason For Visit: depression Interim History: Nobody gave me the address so I wasn't able to go Patient did not end up going to respite. Packed up but then she and didnt know where. Says they left a message afterhours at [facility] to inquire. She says it was fine that she didnt go. She says she was out of the crisis by the afternoon (Tue) once she started back on the Trilafon. Mood is still low, depressed but not doing as bad as last week I'm okay, I'm tired. Been isolating . Thoughts to self harm are still there, but dont feel like acting on them. SHe feels perphenazine helps with not as irritable as I would be . Rates irritablity improved from a 10/10 on admission/off perphenezine down to a 6 or 7/10 on perphenazine. Oxcarbazepine is 150 mg BID. SHe is ready to start on Latuda, which she held off as we had discussed. She is now off of Wellbutrin, clonidine, and proazosin. In fact she has not had any further nightares since stopping it. She continues with Bendryl 75 mg and 1/2 the dose of trazodone (75 mg instead of 150 mg). She is still waking around 2-3 am, sometimes with anxiety dotn feel like my brain could turn off, still not feeling rested in the AM). We discussed moving the afternoon dose of guanfacine ER 1 mg to HS (so will be on guanfacine ER 1 mg BID) going forward. She is no longer feeling light headed and appreciates being on less antihypertensive meds. Will need to wait until tomorrow sicne blood pressure low today (after 2nd dose of guanfacine ER 1mg today). Medication Compliance: Yes Side effects from medications: No Attending Groups: Yes Review of Systems Acute medical concerns: No Mental Status Exam Mental Status Exam Narrative: Alert, oriented, in no acute distress. Calm, cooperative, engaged. No psychomotor agitation or neurovegetative retardation. Eye contact maintained. Mood depressed, affect constricted, less lability vs last week. Speech normal. Thought process linear, coherent. Thought content related to stressors, transient helplessness, no hopelessness noted, denies SI, intention, urge or plan. Denies any aggressive ideation or HI. No paranoia or delusional content elicited. No evidence of psychosis. Insight and judgment - fair but adequate Diagnostics Vital Signs (24Hr): BMI result Body Mass Index 41.7 Assessment & Plan Assessment & Plan (1) Bipolar II disorder: Status: Acute Code(s): F31.81 - Bipolar II disorder (2) Post traumatic stress disorder (PTSD): Status: Acute Code(s): F43.10 - Post-traumatic stress disorder, unspecified (3) Other obsessive-compulsive disorder: Status: Acute Code(s): F42.8 - Other obsessive-compulsive disorder (4) Cannabis use disorder: Status: Acute Code(s): F12.90 - Cannabis use, unspecified, uncomplicated (5) Nicotine dependence: Qualifiers: Nicotine product type: cigarettes Substance use status: uncomplicated Qualified Code(s): F17.210 - Nicotine dependence, cigarettes, uncomplicated Status: Acute Code(s): F17.200 - Nicotine dependence, unspecified, uncomplicated Plan start lurasidone 20 mg qd w meal and will plan to increase to 40 mg qd w meal as tolerated continue perphenazine 2 mg TID (additional 2 mg as PRN until Latuda more therapeutic cont to taper off oxcarbazepine (continue 150 mg BID and plan to decrease to 150 mg qhs by end of week) continue guanfacine ER 1mg BID (AM and will move afternoon dose to HS) continue trazodone at half dose (75 mg) qhs - for sleep (will consider alternatives or seek lowering dose) continue diphenhydramine 75 mg qhs continue buspirone 7.5 mg TID continue fluvoxamine 25 mg BID (OCD) continue gabapentin 400 mg TID-QID - for sleep, anxiety, agitation (may be able to lower dose if buspirone helpful for anxiety) off prazosin, off clonidine, off Wellbutrin, continue regular medications - famotidine 20 mg qd ASA 162 mg (ppx pre- eclampsia/eclampsia), MV consider vitamin B12 supplementation if level remains low (was <300 in 10/2022), not treated category C - reduced doses of Trileptal (from 600/d to 300/d) (trazodone- reduced dose), Luvox, (d/c prazosin),(d/c clonidine) category B - Intuniv, Buspar, Benadryl, famotidine, lurasidone category C vs N/not assigned - Trilafon (more studies available on quetiapine and lamotrigine in however not enough time to get lamotrigine to a therapeutic dose at this point. Seroquel is a consideration, other considerations include lurasidone, which though technically is category B, but there are limited studies available, seeing as this is a relatively newer medication Alternatives: melatonin, doxylamine, diphenhydramine both category B and considered safe in for sleep No antidepressants are category B though some SSRIs considered safe: (fluoxetine, sertraline, have been extnesively studied, and to some degree bupropion). Unlikely to use SNRIs (risk of eclampsia). Continue to monitor VS check in later in week Patient educated on: diagnosis, medication risk/benefits and medical condition Informed Consent: understands Reason for contiued partial hosp. stay Substantial Risk for: inability to function, rapid decompensation and med/psych decompensation Certification I certify that partial hospital treatment is medically necessary due to the symptoms and problems resulting from the patient's mental illness and the failure to treat the patient at the partial hospital level of care would likely result in the patient requiring inpatient psychiatric care which could not be prevented at a less intensive level of care. Total time managing care of this patient today _30___ minutes. Discharge Plan Discharge Attending provider: Alina Brady Medications: New diphenhydramine HCl 25 mg tablet 50 - 75 mg PO BEDTIME PRN (Reason: sleep) Qty: 30 0RF mecobalamin (vitamin B12) 1,000 mcg tablet,chewable 1,000 mcg PO DAILY Qty: 30 0RF lurasidone 40 mg tablet 40 mg PO QPM Qty: 10 0RF Rx Instructions: start 1/2 tablet po daily with supper for 2-4 days as directed, then increase to one tablet; must administer with food (at least 350 calories) oxcarbazepine 150 mg tablet 150 mg PO BID Qty: 20 0RF Rx Instructions: continue to taper off as directed Continued gabapentin 400 mg capsule 400 mg PO TID Qty: 30 0RF Rx Instructions: Last filled 03/04/24 famotidine 20 mg Tablet 20 mg PO DAILY Rx Instructions: Last filled 03/23/24 [id number] 1 mg Tablet 1 tab PO DAILY aspirin 81 mg Capsule 162 mg PO DAILY Rx Instructions: 2 tabs daily starting 12 weeks gestation. Last filled 03/22/24 buspirone 7.5 mg tablet 7.5 mg PO TID PRN (Reason: Anxiety) Qty: 30 0RF Rx Instructions: Last filled 04/02/24 fluvoxamine 25 mg tablet 25 mg PO BID Qty: 30 0RF Rx Instructions: Last filled 03/22/24 Changed trazodone 150 mg Tablet 75 mg PO BEDTIME PRN (Reason: sleep) Qty: 10 0RF perphenazine 2 mg tablet 2 mg PO TID PRN (Reason: as directed) Qty: 30 0RF guanfacine 1 mg tablet extended release 24 hr 1 mg PO BID Qty: 30 0RF Rx Instructions: in AM and afternoon Discontinued clonidine HCl 0.1 mg tablet 0.1 mg PO BEDTIME Patient Comments: Last Filled 02/03/24 90 day supply. oxcarbazepine 300 mg tablet 300 mg PO BID Qty: 30 0RF Rx Instructions: Last filled 03/23/24 prazosin 1 mg Capsule 1 mg PO BEDTIME Rx Instructions: Last filled 02/17/24 90 day supply. guanfacine 2 mg Tablet Extended Release 24 Hr 2 mg PO DAILY Rx Instructions: Last filled 04/02/24 Stand Alone Forms: Patient Portal Discharge page Print Language: Yakut
[2024-05-01 13:29] VITALS: BP 94/58
--- NOTE | 2024-05-04 00:13 | PM.EVENT ---
Event Note Date of Service: 05/04/24 Event Note: Unable to follow up with patient Th or Fri as patient did not come to program. Will follow up early next week Time Spent With Patient Time: Total time managing care of this patient today ____ minutes.
--- NOTE | 2024-05-04 09:00 | HO.PHP ---
Clarissa called [facility] adminNasrin and transfered the call to this sheet writer. 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 She stated she will be in program her last two covered days on Tuesday and Tuesday.
--- NOTE | 2024-05-07 20:13 | P.PNPSP_ITS ---
Subjective Subjective Date of Service: 05/07/24 Reason For Visit: depression Interim History: Patient seen for follow-up, anticipating discharge at the end of program today.? My mood's been better, still feeling overstimulated, some depression still there . Depression severity has improved from 9/10 to a 6/10. Irritability severity also improved from 10 to a 4 or 5/10. Anxiety from 10 to a 4/10. No current thoughts of harming self or others. Denies any hopelessness or SI. Denies thoughts of harming self or others at this time. Denies any aggressive ideation or HI. Denies any paranoia or AH or VH. Sleep, appetite, energy stable. Reports no acute issues or concerns. Medication compliant, medications well- tolerated. Denies any adverse effects.? Mental Status Exam Mental Status Exam Narrative: Alert, oriented, in no acute distress. Calm, cooperative, engaged. No psychomotor agitation or neurovegetative retardation. Eye contact maintained. Mood less depressed, more stable. Affect appropriate. Speech normal. Thought process linear, coherent. Thought content related to stressors, denies SI, intention, urge or plan. Denies any aggressive ideation or HI. No paranoia or delusional content elicited. No evidence of psychosis. Insight and judgment - fair but adequate Diagnostics Vital Signs (24Hr): BMI result Body Mass Index 41.7 Assessment & Plan Assessment & Plan (1) Bipolar II disorder: Status: Acute Code(s): F31.81 - Bipolar II disorder (2) Other obsessive-compulsive disorder: Status: Acute Code(s): F42.8 - Other obsessive-compulsive disorder (3) Post traumatic stress disorder (PTSD): Status: Acute Code(s): F43.10 - Post-traumatic stress disorder, unspecified (4) Cannabis use disorder: Status: Acute Code(s): F12.90 - Cannabis use, unspecified, uncomplicated (5) Nicotine dependence: Qualifiers: Nicotine product type: cigarettes Substance use status: uncomplicated Qualified Code(s): F17.210 - Nicotine dependence, cigarettes, uncomplicated Status: Acute Code(s): F17.200 - Nicotine dependence, unspecified, uncomplicated (6) : Status: Acute Code(s): Z34.90 - Encounter for supervision of normal , unspecified, unspecified trimester Plan [facility]charge from [facility] Continue regular medications Refills sent to pharmacy Will defer further medication management to outpatient provider *Safety plan reviewed *Discharge diagnoses, treatment course, discharge plan have been reviewed with patient (including medication regime, medication management, potential side effects) as well as treatment rationale were also revisited *Discharge paperwork signed and given to patient, copy sent for scanning to chart Certification I certify that partial hospital treatment is medically necessary due to the symptoms and problems resulting from the patient's mental illness and the failure to treat the patient at the partial hospital level of care would likely result in the patient requiring inpatient psychiatric care which could not be prevented at a less intensive level of care. Total time managing care of this patient today ____ minutes. Discharge Plan Discharge Attending provider: Alina Brady Medications: New mecobalamin (vitamin B12) 1,000 mcg tablet,chewable 1,000 mcg PO DAILY Qty: 30 0RF lurasidone 40 mg tablet 40 mg PO QPM Qty: 10 0RF Rx Instructions: start 1/2 tablet po daily with supper for 2-4 days as directed, then increase to one tablet; must administer with food (at least 350 calories) gabapentin 300 mg capsule 300 mg PO TID Qty: 30 0RF lurasidone 20 mg tablet 10 mg PO QPM Qty: 15 0RF Rx Instructions: must administer with food (at least 350 calories) Continued famotidine 20 mg Tablet 20 mg PO DAILY Rx Instructions: Last filled 03/23/24 [id number] 1 mg Tablet 1 tab PO DAILY aspirin 81 mg Capsule 162 mg PO DAILY Rx Instructions: 2 tabs daily starting 12 weeks gestation. Last filled 03/22/24 buspirone 7.5 mg tablet 7.5 mg PO TID PRN (Reason: Anxiety) Qty: 30 0RF Rx Instructions: Last filled 04/02/24 fluvoxamine 25 mg tablet 25 mg PO BID Qty: 30 0RF Rx Instructions: Last filled 03/22/24 Changed trazodone 150 mg Tablet 75 mg PO BEDTIME PRN (Reason: sleep) Qty: 10 0RF perphenazine 2 mg tablet 2 mg PO TID PRN (Reason: as directed) Qty: 30 0RF oxcarbazepine 150 mg tablet 150 mg PO BEDTIME Qty: 20 0RF Rx Instructions: continue to taper off as directed guanfacine 1 mg tablet extended release 24 hr 1 mg PO QAM Qty: 30 0RF Rx Instructions: in AM and afternoon diphenhydramine HCl 25 mg tablet 75 mg PO BEDTIME PRN (Reason: sleep) Qty: 30 0RF Discontinued clonidine HCl 0.1 mg tablet 0.1 mg PO BEDTIME Patient Comments: Last Filled 02/03/24 90 day supply. gabapentin 400 mg capsule 400 mg PO TID Qty: 30 0RF Rx Instructions: Last filled 03/04/24 oxcarbazepine 300 mg tablet 300 mg PO BID Qty: 30 0RF Rx Instructions: Last filled 03/23/24 prazosin 1 mg Capsule 1 mg PO BEDTIME Rx Instructions: Last filled 02/17/24 90 day supply. guanfacine 2 mg Tablet Extended Release 24 Hr 2 mg PO DAILY Rx Instructions: Last filled 04/02/24 Stand Alone Forms: Patient Portal Discharge page Patient Education: Bipolar Disorder (DC), Depression (DC), Obsessive Compulsive Disorder (DC) Print Language: [place] Telehealth Telehealth Telehealth Platform: Telephone
== END 2024-05-01 23:59 | disposition home or self-care (01) ==
LOC: HO.PHPA 09:00
PROVIDERS: Visit Provider Psychiatry & Neurology Psychiatry
DX: O99.343 Other mental disorders complicating pregnancy, third trimester (principal); F31.81 Bipolar II disorder; F43.10 Post-traumatic stress disorder, unspecified; F42.8 Other obsessive-compulsive disorder; O99.323 Drug use complicating pregnancy, third trimester; F12.90 Cannabis use, unspecified, uncomplicated; O99.333 Smoking (tobacco) complicating pregnancy, third trimester; F17.210 Nicotine dependence, cigarettes, uncomplicated; Z3A.00 Weeks of gestation of pregnancy not specified; Z79.899 Other long term (current) drug therapy
CPT/HCPCS: 90791; 90853